=== PATIENT | female | born 1975 | race Caucasian/White ===

== ENCOUNTER 2016-03-18 12:11 | Emergency (ER) | payer MEDICAID, MEDICARE ==
[2016-03-18] MEDS ORDERED: KETOROLAC 30 MG/ML VIAL ONE (19:15)
== END 2016-03-18 20:52 | disposition home or self-care (01) ==
LOC: ER 12:11
DX: R09.1 Pleurisy (principal); D72.829 Elevated white blood cell count, unspecified; Z79.899 Other long term (current) drug therapy; I10 Essential (primary) hypertension; F32.9 Major depressive disorder, single episode, unspecified; I25.2 Old myocardial infarction
CPT/HCPCS: 36415; 71020; 80053; 82553; 84484; 85025; 85379; 85610; 85730; 93005; 96374; 99284; J1885